=== PATIENT | female | born 1980 ===

== ENCOUNTER 2021-12-17 10:26 | Emergency (ER) | payer OTHER ==
[2021-12-17] MEDS ORDERED: Lidocaine 1% 20 ML MDV INJECT ONE (10:41)
[2021-12-17] MEDS ORDERED: Lidocaine 1% 10 ML MDV INJECT ONE (10:47)
[2021-12-17] MEDS ORDERED: Lidocaine 1% 10 ML MDV ONE (10:49)
[2021-12-17] MEDS ORDERED: cefTRIAXone 1 GM Vial IM ONE (12:07)
[2021-12-17] MEDS ORDERED: cefTRIAXone 1 GM, Lidocaine 1% 2.1 ML IM ONE ×2 (12:21)
== END 2021-12-17 13:09 | disposition home or self-care (01) ==
LOC: JD.ED 10:26
DX: S62.656B Nondisplaced fracture of middle phalanx of right little finger, initial encounter for open fracture (principal); W22.09XA Striking against other stationary object, initial encounter; Y99.0 Civilian activity done for income or pay
CPT/HCPCS: 12002; 73140; 96372; 99283; J0696